=== PATIENT | male | born 1970 ===

== ENCOUNTER 2023-03-21 17:27 | Emergency (ER) | payer OTHER ==
[2023-03-21] MEDS ORDERED: Lidocaine 1% with EPINEPHrine 1:100,000 20 ML MDV INJECT ONE (17:30)
[2023-03-21] MEDS ORDERED: Bacitracin/Neomycin/Polymyxin B Oint 0.9 GM U/D Packet TOP ONE (17:31)
[2023-03-21 18:17] VITALS: BP 144/95; PULSE 66
== END 2023-03-21 18:22 | disposition home or self-care (01) ==
LOC: CC.ED 17:27
DX: S71.112A Laceration without foreign body, left thigh, initial encounter (principal); Z79.899 Other long term (current) drug therapy; W31.2XXA Contact with powered woodworking and forming machines, initial encounter
CPT/HCPCS: 12002; 99282; 99283; A9270-GY; J3490